=== PATIENT | male | born 1995 | race Caucasian/White ===

== ENCOUNTER 2022-03-23 09:51 | Emergency (ER) | payer SELFPAY ==
[~2022-03-23] VITALS: Ht 165.1 cm; Wt 72.6 kg
[2022-03-23 10:04] VITALS: BP 114/91
--- NOTE | 2022-03-23 10:25 | NUR ---
26 Y/O MALE BIB FAMILY, PT STATES HE ATE PIZZA 2 DAYS AGO AND HAS HAD ABD PAIN, N/V/D FOR 2 DAYS. PT STATES HE HAS HAD DECREASED APPETITE. PT STATES HE WAS THE ONLY ONE WHO GOT SICK FROM THE FOOD. 8/10 [place]ARP, PRESSURE PAIN. PT STATES HE SMOKED MARIJUANA 3 DAYS AGO. SKIN IS PALE/WARM/DRY; AAOX4 WITH EVEN AND STEADY GAIT; LUNGS CLEAR BL; HR EVEN AND REGULAR; PT TACHY AT 111 HR. ER MD MADE AWARE OF PT STATUS. PMH: DENIES NKA MED: PEPTOBISMOL
[2022-03-23] MEDS ORDERED: ONDANSETRON 4 MG/2 ML VIAL IVP ONE (10:55)
[2022-03-23] MEDS ORDERED: NACL 0.9% 1,000 ML IV ONE (10:55)
[2022-03-23] MEDS ORDERED: KETOROLAC 30 MG/ML VIAL IVP ONE (10:55)
[2022-03-23 11:05] LABS: APPEARANCE,URINE CLEAR (CLEAR); BILIRUBIN,URINE 1+ (NEGATIVE); BLOOD, URINE TRACE-I (NEGATIVE); COLOR,URINE YELLOW (YELLOW); LEUKOCYTE ESTERASE ,URINE NEGATIVE (NEGATIVE); NITRITE, URINE NEGATIVE (NEGATIVE); UGLUCOSE NEGATIVE (NEGATIVE)
[2022-03-23 11:06] LABS: BASOPHILS % (AUTO) 0.3 % (0.0-2.0); EOSINOPHILS % (AUTO) 0.1 % (0.0-4.0); HEMATOCRIT 53.5 % (36-52); HEMOGLOBIN 18.5 g/dL (12.0-18.0); LYMPHOCYTES # (AUTO) 0.9 K/uL (2.0-11.5); LYMPHOCYTES % (AUTO) 11.9 % (20.5-51.1); MEAN CORPUSCULAR HEMOGLOBIN 30 pg (27-31); MEAN CORPUSCULAR HGB CONC 35 g/dL (33-37); MEAN CORPUSCULAR VOLUME 86.4 fL (80-94); MONOCYTES # (AUTO) 1.3 K/uL (0.8-1.0); MONOCYTES % (AUTO) 17.4 % (1.7-9.3); NEUTROPHILS # (AUTO) 5.3 K/uL (1.8-7.7); NEUTROPHILS % (AUTO) 70.3 % (42.2-75.2); PLATELET COUNT (AUTO) 236 K/uL (140-450); RED BLOOD CELL COUNT(AUTO) 6.18 MIL/uL (4.20-6.10); RED CELL DISTRIBUTION WIDTH 13.6 % (11.6-13.7); WHITE BLOOD COUNT (AUTO) 7.6 K/uL (4.8-10.8)
[2022-03-23 11:23] LABS: ANION GAP 19.7 (8-16); CARBON DIOXIDE 19.6 mmol/L (21-32); POTASSIUM 3.3 mmol/L (3.5-5.1); TOTAL BILIRUBIN 0.6 mg/dL (0.0-1.0)
[2022-03-23 11:23] LABS: RBC,URINE 0-5 /HPF (0-5); WBC,URINE 0-5 /HPF (0-5)
[2022-03-23 11:24] LABS: OTHER CASTS, URINE None Seen /LPF (None Seen)
--- NOTE | 2022-03-23 11:33 | NUR ---
PT AMBULATED OUTSIDE OF LOBBY, UNKNOWN REASON
--- NOTE | 2022-03-23 11:39 | NUR ---
SEARCHED BATHROOMS, LOBBY/OUTSIDE. PT NOT FOUND
--- NOTE | 2022-03-23 11:44 | NUR ---
ATTEMPTED TO CALL PT, NO ANSWER, LEFT MESSAGE. DR GUO AWARE
--- NOTE | 2022-03-23 12:04 | NUR ---
MELLISA RUVALCABA, SPOKE WITH CONTACTED D/T PT ELOPING WITH IV. WILL SEND UNIT OUT TO LOOK FOR PT Addendum: 03/23/22 at 1209 by [email or web address] CONTACTED
--- NOTE | 2022-03-23 12:17 | NUR ---
MELLISA RUVALCABA RESPONDED, OFFICER ANUPAMA STATED HE WILL DO AN AREA CHECK.
== END 2022-03-23 11:33 | disposition left against medical advice (07) ==
LOC: MED 09:51
DX: A08.4 Viral intestinal infection, unspecified (principal); E87.1 Hypo-osmolality and hyponatremia
CPT/HCPCS: 36415; 80053; 81001; 83690; 85025; 87086; 96361; 96374; 96375; 99284; J1885; J2405; J7030